=== PATIENT | male | born 1935 | race Caucasian/White ===

== ENCOUNTER 2018-01-02 09:11 | Emergency (ER) | payer MEDICARE, OTHER ==
[2018-01-02] MEDS ORDERED: Iohexol 240 (50 ml) PO STA (09:53)
--- NOTE | 2018-01-02 09:53 | C.PDOC ---
History Of Present Illness 82 Y/O MALE PRESENTS TO ED REFERRED DR CABALLERO FOR EVALUATION OF NEW ONSET RLQ PAIN FOR 2-3 WEEKS, WORSENING FOR 3-4 DAYS. PAIN IS INTERMITTENT WORSE WITH WALKING OR COUGHING. QUESTIONABLE MASS PER PATIENT. DENIES N/V/D, FEVER. PSH PPM. NPO SINCE [address] CABALLERO. NEW ONSET RLQ PAIN X 2-3 WEEKS NOW WORSENING 3-4 DAYS. INTERMIT WORSE W WALKING, COUGHING. ?MASS. NO NVD, FEVER. PSH PPM. NPO SINCE 08 EXAM NAD NONTOXIC ABD MIN RLQ TEND SOFT NO R/G. NO PALP MASS. NO PALP MASS INGUINAL AREA, NONTEND REMAINDER NEG MDM DOES NOT WANT PAIN MEDS AT THIS TIME Time Seen by Provider: 01/02/18 09:21 History Per: Patient History/Exam Limitations: no limitations Onset/Duration Of Symptoms: Days Current Symptoms Are (Timing): Still Present Location Of Pain/Discomfort: RLQ Radiation Of Pain To:: None Past Medical History Reviewed: Historical Data, Nursing Documentation, Vital Signs Vital Signs: Last Vital Signs Temp 97.7 F 01/02/18 09:36 Pulse 71 01/02/18 09:36 Resp 20 01/02/18 09:36 BP 157/79 H 01/02/18 09:36 Pulse Ox 96 01/02/18 10:30 - Medical History PMH: HTN Surgical History: Coronary Stent, Pacemaker - [facility] Procedures CATARAC PHACOEMULS/ASPIR (08/06/13) INSERT LENS AT CATAR EXT (08/06/13) Family History: States: No Known Family Hx - Social History Hx Alcohol Use: No Hx Substance Use: No - Immunization History Hx Tetanus Toxoid Vaccination: No Hx Influenza Vaccination: Yes Hx Pneumococcal Vaccination: Yes Review Of Systems Constitutional: Negative for: Fever, Chills Gastrointestinal: Positive for: Abdominal Pain. Negative for: Nausea, Vomiting , Diarrhea Skin: Negative for: Rash Physical Exam - Physical Exam Appears: Non-toxic, No Acute Distress Skin: Warm, Dry, No Rash Head: Atraumatic, Normacephalic Oral Mucosa: Moist Neck: Normal ROM, Supple Cardiovascular: Rhythm Regular Respiratory: Normal Breath Sounds, No Rales, No Rhonchi, No Wheezing Gastrointestinal/Abdominal: Soft, Tenderness (Minimal RLQ ), No Mass (Not palpable ), No Guarding, No Rebound Male Genital: No Inguinal Tenderness, Other (No palpable mass on inguinal area) Neurological/Psych: Oriented x3, Normal Speech, Normal Cognition ED Course And Treatment - Laboratory Results Result Diagrams: 01/02/18 10:24 01/02/18 10:24 O2 Sat by Pulse Oximetry: 96 (RA) Pulse Ox Interpretation: Normal Progress - Re-Evaluation Re-evaluation Note: 01/02/18 14:[address] NEG - Data Reviewed Data Reviewed: Lab, Diagnostic imaging Medical Decision Making Medical Decision Making: PROGRESS: PATIENT DOES NOT WANT PAIN MEDS AT THIS TIME Disposition Counseled Patient/Family Regarding: Studies Performed, Diagnosis, Need For Followup - Disposition Referrals: Emilio Caballero MD [Staff Provider] - Disposition: HOME/ ROUTINE Disposition Time: 14:27 Condition: GOOD Instructions: Acute Abdomen (Belly Pain), Adult (DC) Print Language: PALAUAN - Clinical Impression Clinical Impression: Abdominal pain - Scribe Statement The provider has reviewed the documentation as recorded by the Scribgeena Hope All medical record entries made by the Reneeibgeena were at my direction and personally dictated by me. I have reviewed the chart and agree that the record accurately reflects my personal performance of the history, physical exam, medical decision making, and the department course for this patient. I have also personally directed, reviewed, and agree with the discharge instructions and disposition.
[2018-01-02] MEDS ORDERED: Iohexol 240 (50 ml) ONE (10:06)
[2018-01-02 10:36] LABS: BASO # 0.1 K/uL (0.0-0.2); BASO % 0.7 % (0.0-2.0); EOS % 13.2 % (0.0-4.0); HEMOGLOBIN 14.3 g/dL (12.0-18.0); LYMPH # 2.2 K/uL (1.0-4.3); LYMPH % 29.8 % (20.0-40.0); MEAN CELL VOLUME 97.8 fL (80.0-94.0); MEAN CORPUSCULAR HEMOGLOBIN 33.4 pg (27.0-31.0); MEAN CORPUSCULAR HGB CONC 34.1 g/dL (33.0-37.0); MEAN PLATELET VOLUME 7.9 fL (7.2-11.7); MONO # 0.8 K/uL (0.0-0.8); MONO % 10.3 % (0.0-10.0); NEUT # 3.4 K/uL (1.8-7.0); RBC 4.29 Mil/uL (4.40-5.90); WHITE BLOOD COUNT 7.4 K/uL (4.8-10.8)
[2018-01-02 10:43] LABS: ALB/GLOB RATIO 1.2 (1.0-2.1); ALBUMIN 4.1 g/dL (3.5-5.0); ALT/SGPT 24 U/L (21-72); AST/SGOT 31 U/L (17-59); BLOOD UREA NITROGEN 26 mg/dL (9-20); CALCIUM 8.9 mg/dl (8.6-10.4); GFR AFRICAN-AMERICAN > 60; GFR NON-AFRICAN AMERICAN > 60; LIPASE 121 U/L (23-300); SQUAMOUS EPITHIAL < 1 /hpf (0-5); URINE BILIRUBIN NEGATIVE (NEGATIVE); URINE BLOOD 2+ (NEGATIVE); URINE CLARITY Clear (Clear); URINE COLOR Yellow (YELLOW); URINE GLUCOSE (UA) NORMAL (Normal); URINE LEUKOCYTE ESTERASE NEG Leu/uL (Negative); URINE PROTEIN NEGATIVE (NEGATIVE); URINE UROBILINOGEN NORMAL mg/dL (0.2-1.0)
[2018-01-02] MEDS ORDERED: Iohexol 350mg/ml 100 ML ONE (11:47)
[2018-01-02] MEDS ORDERED: Iodixanol 320 mg/ml 150 ml Bottle IV ONE (11:52)
--- NOTE | 2018-01-02 13:44 | CT ---
PROCEDURE: CT Abdomen and Pelvis with contrast HISTORY: abd pain RLQ COMPARISON: None. TECHNIQUE: Contrast dose: 100 mL Visipaque 320 Radiation dose: Total exam DLP = 389.96 mGy-cm. This CT exam was performed using one or more of the following dose reduction techniques: Automated exposure control, adjustment of the mA and/or kV according to patient size, and/or use of iterative reconstruction technique. FINDINGS: LOWER THORAX: Subpleural fibrosis in both lower lobes, right middle lobe and the lingular segment left upper lobe. No infiltrate. AICD noted. Mild cardiomegaly. Coronary arterial calcification. LIVER: Normal size, contour and attenuation. Multiple small nonspecific low-attenuation lesions, largest 10 mm. These are seen in both the right and left lobe. No biliary dilatation. GALLBLADDER AND BILE DUCTS: Unremarkable. PANCREAS: Unremarkable. No gross lesion or ductal dilatation. SPLEEN: Unremarkable. ADRENALS: Unremarkable. No mass. KIDNEYS AND URETERS: 10 mm mid left renal cortical cyst. No other renal mass. No calculus or hydronephrosis. VASCULATURE: Unremarkable. No aortic aneurysm. BOWEL: Unremarkable. No obstruction. No gross mural thickening. APPENDIX: Normal appendix. PERITONEUM: Unremarkable. No free fluid. No free air. LYMPH NODES: Unremarkable. No enlarged lymph nodes. BLADDER: Unremarkable. REPRODUCTIVE: Unremarkable. BONES: No acute fracture. OTHER FINDINGS: None. IMPRESSION: No evidence of appendicitis. No bowel obstruction. Minor findings as above
[2018-01-02 14:27] VITALS: RESP 18
[2018-01-02 15:44] VITALS: BP 106/67; PULSE 60; TEMP 97.5; O2SAT 98
== END 2018-01-02 15:48 | disposition home or self-care (01) ==
LOC: C.ER 09:11
DX: R10.31 Right lower quadrant pain (principal)
CPT/HCPCS: 74177; 80053; 81001; 83690; 85025; 99285; Q9966; Q9967

== ENCOUNTER 2018-02-14 06:13 | Inpatient (IN) | payer MEDICARE, OTHER ==
[2018-02-01 10:23] VITALS: BMI 23.2
[2018-02-14] MEDS ORDERED: ceFAZolin 1 gm in NS 0 GM/0 ML BAG IVPB ONE (07:15)
[2018-02-14] MEDS ORDERED: Bupivacaine HCl 0.25% PF (30 ml) Inj ONE ×2 (07:15)
[2018-02-14] MEDS ORDERED: Lidocaine/Epinephrine 1% 1:100000 10 ML IJ ONE (07:16)
[2018-02-14] MEDS ORDERED: Phenylephrine 10 mg/ml Inj ONE (07:55)
[2018-02-14] MEDS ORDERED: Rocuronium 10 mg/ml (5 ml) ONE (07:55)
[2018-02-14] MEDS ORDERED: ePHEDrine 50 mg/ml Inj ONE (07:55)
[2018-02-14] MEDS ORDERED: Etomidate 20 mg/10ml Inj IV ONE (07:55)
[2018-02-14] MEDS ORDERED: Lactated Ringer's 1,000 ML IV ONE (10:05)
--- NOTE | 2018-02-14 10:47 | CP.PCM.CON ---
<Susanne Awad - Last Filed: 02/14/18 17:15> History of Present Illness - History of Present Illness History of Present Illness: Critical Care Consult Note HPI: This is an 82 year old male with PMHx of HTN, HLD, CAD with 3 stents, AICD / Pacemaker, Hx Right sided Carotid Stenosis s/p endarterectomy, Atrial Fibrillation, and HYPERthyroidism who presented to [facility] for bilateral inguinal hernia repair, prior to receiving anesthesia, his BP was 220/90s, patient was completely asymptomatic, denied chest pain, dizziness, shortness of breath. Patient was admitted to ICU on cardene drip and for further cardiac monitoring. Patient started on norvasc and coreg, will titrate cardene drip, ECHO ordered. If BP remains still he is for OR tomorrow. Denied fever, chills, headache, SOB, chest pain, abdominal pain, n/v/d/c, or urinary symptoms. PMHx: HTN, HLD, CAD with 3 stents, AICD/ Pacemaker, Hx Right sided Carotid Stenosis s/p endarterectomy, Atrial Fibrillation, and HYPERthyroidism PSHx: Endarterectomy, PCI placements, AICD/ Pacemaker, Partial Right thyroidectomy, Glaucoma, Meds: Vitamin D, [place] 3, Plavix 75, Eliquis 5mg BID, Torsemide 10mg daily, Kdur 20mg daily, Atorvastatin 20mg, Methimazole 10mg, (used to take cozaar 100mg , coreg 12.5mg BID, not taking ASA as instructed by PMD). All: NKDA SHx: Smoked and drink alcohol social as a teen, denied current tobacco, ETOH or illicit drug use FHx: Unremarkable PMD: Dr. Cosmo Paredes (daughter) [phone] Past Patient History - Past Medical History & Family History Past Medical History?: Yes - Past Social History Smoking Status: Never Smoked - CARDIAC Hx Cardiac Disorders: Yes Hx Cardia Arrhythmia: Yes Hx Hypercholesterolemia: Yes Hx Hypertension: Yes Hx Internal Defibrillator: Yes (AICD) Hx Pacemaker: Yes Other/Comment: HX: AICD - PULMONARY Hx Respiratory Disorders: Yes Hx Pneumonia: Yes ("MANY YEARS AGO") - HEENT Hx HEENT Problems: Yes Hx Glaucoma: Yes (SURGERY DONE) - ENDOCRINE/METABOLIC Hx Endocrine Disorders: Yes Hx Hypothyroidism: Yes Other/Comment: HX: PARTIAL (RIGHT) THYROIDECTOMY - GASTROINTESTINAL Hx Gastrointestinal Disorders: Yes Hx Gastroesophageal Reflux: Yes - SURGICAL HISTORY Hx Surgeries: Yes Hx Cardiac Catheterization: Yes Hx Coronary Stent: Yes Hx Eye Surgery: Yes (FOR GLUCOMA) Hx Thyroidectomy: Yes (PARTIAL (RIGHT) THYROIDECTOMY) - ANESTHESIA Hx Anesthesia: Yes Hx Anesthesia Reactions: No Hx Malignant Hyperthermia: No Has any member of the family had a problem w/ anesthesia?: No Meds Allergies/Adverse Reactions: Allergies Allergy/AdvReac Type Severity Reaction Status Date / Time No Known Allergies Allergy Verified 01/02/18 09:44 - Medications Medications: Current Medications Enoxaparin Sodium (Lovenox) 40 mg SC DAILY [facility] Nicardipine HCl 25 mg/ Sodium (Chloride) 250 mls @ 50 mls/hr IV .Q5H INDIRA; 5 MG/ HR PRN Reason: Protocol Losartan Potassium (Cozaar) 100 mg PO DAILY [facility] Methimazole (Tapazole) 10 mg PO DAILY [facility] Pantoprazole Sodium (Protonix Inj) 40 mg IVP DAILY [facility] Rosuvastatin Calcium (Crestor) 2.5 mg PO HS INDIRA Torsemide (Demadex) 20 mg PO DAILY INDIRA Physical Exam - Constitutional Appears: No Acute Distress - Head Exam Head Exam: NORMAL INSPECTION, NORMOCEPHALIC - Eye Exam Eye Exam: EOMI, Normal appearance, PERRL Pupil Exam: NORMAL ACCOMODATION - ENT Exam ENT Exam: Mucous Membranes Moist, Normal Exam - Respiratory Exam Respiratory Exam: Clear to Auscultation Bilateral, NORMAL BREATHING PATTERN - Cardiovascular Exam Cardiovascular Exam: REGULAR RHYTHM, RRR, +S1, +S2 - GI/Abdominal Exam GI & Abdominal Exam: Normal Bowel Sounds, Soft. absent: Distended, Tenderness - Rectal Exam Rectal Exam: Deferred - Extremities Exam Extremities exam: Positive for: normal inspection, pedal pulses present. Negative for: pedal edema, tenderness - Back Exam Back exam: NORMAL INSPECTION - Neurological Exam Neurological exam: Alert, CN II-XII Intact, Oriented x3 - Psychiatric Exam Psychiatric exam: Normal Affect, Normal Mood - Skin Skin Exam: Dry, Intact, Normal Color, Warm Results - Vital Signs Recent Vital Signs: Last Vital Signs Temp 97.9 F 02/14/18 06:33 Pulse 69 02/14/18 06:33 Resp 20 02/14/18 06:33 BP 176/95 H 02/14/18 06:33 Pulse Ox 97 02/14/18 06:33 - Labs Result Diagrams: 02/14/18 11:20 02/14/18 11:20 Assessment & Plan - Assessment and Plan (Free Text) Assessment: This is an 82 year old male with PMHx of HTN, HLD, CAD with 3 stents, AICD/ Pacemaker, Hx Right sided Carotid Stenosis s/p endarterectomy, Atrial Fibrillation, and HYPERthyroidism who presented to [facility] for bilateral inguinal hernia repair, prior to receiving anesthesia, his BP was 220/90s, patient was completely asymptomatic, denied chest pain, dizziness, shortness of breath. Currently on a cardene drip, will transition to norvasc and coreg, anticipate OR tomorrow if BP stabilizes. Plan: Neuro: GCS 15 Cardio: A: Hypertensive Urgency, Hx HTN - Currently on Cardene drip, will titrate to PO meds - Norvasc 10mg PO, Coreg 25mg PO BID - ECHO A: CAD with 3 stents - Plavix 75mg PO - held for surgery - Crestor 2.5 mg A: AICD/ Pacemaker A: Carotid Stenosis s/p endarterectomy A: Atrial Fibrillation - Takes Eliquis at home 5mg PO BID - held 2/2 preop GI A: Bilateral Inguinal Hernia General Surgery - Dr. Nicholas - Plan for OR 02/15/18 if BP stabilizes Endo: A: Hyperthyroidism - Resume Methimazole 10mg PO daily Prophylaxis: - Protonix - SCDs, VTE c/i preop DW Susanne Smith DO, PGY-1 <Yaron Ybarra - Last Filed: 02/14/18 18:00> Meds - Medications Medications: Current Medications Amlodipine Besylate (Norvasc) 10 mg PO DAILY [facility] Carvedilol (Coreg) 25 mg PO Q12 INDIRA Nicardipine HCl 25 mg/ Sodium (Chloride) 250 mls @ 50 mls/hr IV .Q5H INDIRA; 5 MG/ HR PRN Reason: Protocol Last Admin: 02/14/18 10:59 Dose: 5 mg/hr, 50 mls/hr Methimazole (Tapazole) 10 mg PO DAILY [facility] Last Admin: 02/14/18 13:29 Dose: 10 mg Pantoprazole Sodium (Protonix Inj) 40 mg IVP DAILY [facility] Last Admin: 02/14/18 13:29 Dose: 40 mg Rosuvastatin Calcium (Crestor) 2.5 mg PO HS INDIRA Torsemide (Demadex) 20 mg PO DAILY INDIRA Results - Vital Signs Recent Vital Signs: Last Vital Signs Temp 98.5 F 02/14/18 16:00 Pulse 65 02/14/18 17:00 Resp 16 02/14/18 17:00 BP 126/75 02/14/18 17:00 Pulse Ox 98 02/14/18 17:00 - Labs Result Diagrams: 02/14/18 11:20 02/14/18 11:20 Labs: Laboratory Results - last 24 hr 02/14/18 02/14/18 02/14/18 11:20 11:20 11:20 WBC 6.8 RBC 4.39 L Hgb 14.5 Hct 42.5 MCV 96.9 H MCH 33.1 H MCHC 34.1 RDW 13.4 Plt Count 87 L MPV 7.5 Neut % (Auto) 47.9 L Lymph % (Auto) 32.7 [place] % (Auto) 10.7 H Eos % (Auto) 7.9 H Baso % (Auto) 0.8 Neut # (Auto) 3.2 Lymph # (Auto) 2.2 [place] # (Auto) 0.7 Eos # (Auto) 0.5 Baso # (Auto) 0.1 Sodium 141 Potassium 4.3 Chloride 101 Carbon Dioxide 30 Anion Gap 14 BUN 26 H Creatinine 1.1 Est GFR ( Amer) > 60 Est GFR (Non-Af Amer) > 60 Random Glucose 112 H Calcium 9.4 Phosphorus 3.7 Magnesium 1.9 Total Bilirubin 1.0 AST 27 ALT 24 Alkaline Phosphatase 63 Total Protein 7.5 Albumin 4.4 Globulin 3.1 Albumin/Globulin Ratio 1.4 Free T4 1.56 TSH 3rd Generation 0.24 L Attending/Attestation - Attestation I have personally seen and examined this patient.: Yes I have fully participated in the care of the patient.: Yes I have reviewed all pertinent clinical information: Yes Notes (Text): 02/14/18 18:00 patient seen and examinedin the intensive care unit. 82 year old male with PMHx of HTN, HLD, CAD with 3 stents, AICD/ Pacemaker, Hx Right sided Carotid Stenosis s/p endarterectomy, Atrial Fibrillation, and HYPERthyroidism who presented to [facility] for bilateral inguinal hernia repair, prior to receiving anesthesia, his BP was 220/90s, patient was completely asymptomatic, denied chest pain, dizziness, shortness of breath. Currently on a cardene drip, will transition to norvasc and coreg, anticipate OR tomorrow if BP stabilizes.
[2018-02-14] MEDS: niCARdipine IV 25 MG in Sodium Chloride 0.9% 240 ML IV SCH ×3 (10:59→21:10)
--- NOTE | 2018-02-14 11:22 | CP.PCM.HP ---
History of Present Illness - History of Present Illness History of Present Illness: Medicine Note for Hospitalist Service HPI: This is an 82 year old male with PMHx of HTN, HLD, CAD with 3 stents, AICD / Pacemaker, Hx Right sided Carotid Stenosis s/p endarterectomy, Atrial Fibrillation, and HYPERthyroidism who presented to [facility] for bilateral inguinal hernia repair, prior to receiving anesthesia, his BP was 220/90s, patient was completely asymptomatic, denied chest pain, dizziness, shortness of breath. Patient was admitted to ICU on cardene drip and for further cardiac monitoring. Patient started on norvasc and coreg, will titrate cardene drip, ECHO ordered. If BP remains still he is for OR tomorrow. Denied fever, chills, headache, SOB, chest pain, abdominal pain, n/v/d/c, or urinary symptoms. PMHx: HTN, HLD, CAD with 3 stents, AICD/ Pacemaker, Hx Right sided Carotid Stenosis s/p endarterectomy, Atrial Fibrillation, and HYPERthyroidism PSHx: Endarterectomy, PCI placements, AICD/ Pacemaker, Partial Right thyroidectomy, Glaucoma, Meds: Vitamin D, [place] 3, Plavix 75, Eliquis 5mg BID, Torsemide 10mg daily, Kdur 20mg daily, Atorvastatin 20mg, Methimazole 10mg, (used to take cozaar 100mg , coreg 12.5mg BID, not taking ASA as instructed by PMD). All: NKDA SHx: Smoked and drink alcohol social as a teen, denied current tobacco, ETOH or illicit drug use FHx: Unremarkable PMD: Dr. Cosmo Paredes (daughter) [phone] Present on Admission - Present on Admission Any Indicators Present on Admission: No Past Patient History - Past Medical History & Family History Past Medical History?: Yes - Past Social History Smoking Status: Never Smoked - CARDIAC Hx Cardiac Disorders: Yes Hx Cardia Arrhythmia: Yes Hx Hypercholesterolemia: Yes Hx Hypertension: Yes Hx Internal Defibrillator: Yes (AICD) Hx Pacemaker: Yes Other/Comment: HX: AICD - PULMONARY Hx Respiratory Disorders: Yes Hx Pneumonia: Yes ("MANY YEARS AGO") - HEENT Hx HEENT Problems: Yes Hx Glaucoma: Yes (SURGERY DONE) - ENDOCRINE/METABOLIC Hx Endocrine Disorders: Yes Hx Hypothyroidism: Yes Other/Comment: HX: PARTIAL (RIGHT) THYROIDECTOMY - GASTROINTESTINAL Hx Gastrointestinal Disorders: Yes Hx Gastroesophageal Reflux: Yes - SURGICAL HISTORY Hx Surgeries: Yes Hx Cardiac Catheterization: Yes Hx Coronary Stent: Yes Hx Eye Surgery: Yes (FOR GLUCOMA) Hx Thyroidectomy: Yes (PARTIAL (RIGHT) THYROIDECTOMY) - ANESTHESIA Hx Anesthesia: Yes Hx Anesthesia Reactions: No Hx Malignant Hyperthermia: No Has any member of the family had a problem w/ anesthesia?: No Meds Allergies/Adverse Reactions: Allergies Allergy/AdvReac Type Severity Reaction Status Date / Time No Known Allergies Allergy Verified 01/02/18 09:44 Physical Exam - Additional Findings Additional findings: - Constitutional Appears: No Acute Distress - Head Exam Head Exam: NORMAL INSPECTION, NORMOCEPHALIC - Eye Exam Eye Exam: EOMI, Normal appearance, PERRL Pupil Exam: NORMAL ACCOMODATION - ENT Exam ENT Exam: Mucous Membranes Moist, Normal Exam - Respiratory Exam Respiratory Exam: Clear to Auscultation Bilateral, NORMAL BREATHING PATTERN - Cardiovascular Exam Cardiovascular Exam: REGULAR RHYTHM, RRR, +S1, +S2 - GI/Abdominal Exam GI & Abdominal Exam: Normal Bowel Sounds, Soft. absent: Distended, Tenderness - Rectal Exam Rectal Exam: Deferred - Extremities Exam Extremities exam: Positive for: normal inspection, pedal pulses present. Negative for: pedal edema, tenderness - Back Exam Back exam: NORMAL INSPECTION - Neurological Exam Neurological exam: Alert, CN II-XII Intact, Oriented x3 - Psychiatric Exam Psychiatric exam: Normal Affect, Normal Mood - Skin Skin Exam: Dry, Intact, Normal Color, Warm Results - Vital Signs Recent Vital Signs: Last Vital Signs Temp 97.9 F 02/14/18 06:33 Pulse 69 02/14/18 06:33 Resp 20 02/14/18 06:33 BP 176/95 H 02/14/18 06:33 Pulse Ox 97 02/14/18 06:33 - Labs Result Diagrams: 02/14/18 11:20 02/14/18 11:20 Assessment & Plan - Assessment and Plan (Free Text) Assessment: This is an 82 year old male with PMHx of HTN, HLD, CAD with 3 stents, AICD/ Pacemaker, Hx Right sided Carotid Stenosis s/p endarterectomy, Atrial Fibrillation, and HYPERthyroidism who presented to [facility] for bilateral inguinal hernia repair, prior to receiving anesthesia, his BP was 220/90s, patient was completely asymptomatic, denied chest pain, dizziness, shortness of breath. Currently on a cardene drip, will transition to norvasc and coreg, anticipate OR tomorrow if BP stabilizes. Plan: Neuro: GCS 15 Cardio: A: Hypertensive Urgency, Hx HTN - Currently on Cardene drip, will titrate to PO meds - Norvasc 10mg PO, Coreg 25mg PO BID - ECHO A: CAD with 3 stents - Plavix 75mg PO - held for surgery - Crestor 2.5 mg A: AICD/ Pacemaker A: Carotid Stenosis s/p endarterectomy A: Atrial Fibrillation - Takes Eliquis at home 5mg PO BID - held 2/2 preop GI A: Bilateral Inguinal Hernia General Surgery - Dr. Nicholas - Plan for OR 02/15/18 if BP stabilizes Endo: A: Hyperthyroidism - Resume Methimazole 10mg PO daily Prophylaxis: - Protonix - SCDs, VTE c/i preop DW Susanne Villafana DO, PGY-1
[2018-02-14 11:23] LABS: BASO # 0.1 K/uL (0.0-0.2); BASO % 0.8 % (0.0-2.0); EOS # 0.5 K/uL (0.0-0.7); EOS % 7.9 % (0.0-4.0); HEMOGLOBIN 14.5 g/dL (12.0-18.0); LYMPH # 2.2 K/uL (1.0-4.3); LYMPH % 32.7 % (20.0-40.0); MEAN CELL VOLUME 96.9 fL (80.0-94.0); MEAN CORPUSCULAR HEMOGLOBIN 33.1 pg (27.0-31.0); MEAN CORPUSCULAR HGB CONC 34.1 g/dL (33.0-37.0); MEAN PLATELET VOLUME 7.5 fL (7.2-11.7); MONO # 0.7 K/uL (0.0-0.8); MONO % 10.7 % (0.0-10.0); NEUT # 3.2 K/uL (1.8-7.0); NEUT % 47.9 % (50.0-75.0); RBC 4.39 Mil/uL (4.40-5.90); RED CELL DISTRIBUTION WIDTH 13.4 % (11.5-14.5); WHITE BLOOD COUNT 6.8 K/uL (4.8-10.8)
[2018-02-14 11:38] LABS: ALB/GLOB RATIO 1.4 (1.0-2.1); ALBUMIN 4.4 g/dL (3.5-5.0); ALT/SGPT 24 U/L (21-72); AST/SGOT 27 U/L (17-59); BLOOD UREA NITROGEN 26 mg/dL (9-20); CALCIUM 9.4 mg/dl (8.6-10.4); GFR AFRICAN-AMERICAN > 60; GFR NON-AFRICAN AMERICAN > 60
--- NOTE | 2018-02-14 13:30 | CP.PCM.CON ---
History of Present Illness - History of Present Illness History of Present Illness: ASKED TO SEE PT BY DR WAHL FOR CARDIOLOGY COVERAGE. 82 y/o male with uncontrolled htn noted pre-hernioraphy. pt has no symptoms of cp, sob, brito, n/v/d/c, lh, dizziness. pt did not take his coreg this morning. currently bp controlled on nicardipine drip. pt has av sequential pacing. Past Patient History - Past Medical History & Family History Past Medical History?: Yes - Past Social History Smoking Status: Never Smoked - CARDIAC Hx Cardiac Disorders: Yes Hx Cardia Arrhythmia: Yes Hx Hypercholesterolemia: Yes Hx Hypertension: Yes Hx Internal Defibrillator: Yes (AICD) Hx Pacemaker: Yes Other/Comment: HX: AICD - PULMONARY Hx Respiratory Disorders: Yes Hx Pneumonia: Yes ("MANY YEARS AGO") - HEENT Hx HEENT Problems: Yes Hx Glaucoma: Yes (SURGERY DONE) - ENDOCRINE/METABOLIC Hx Endocrine Disorders: Yes Hx Hypothyroidism: Yes Other/Comment: HX: PARTIAL (RIGHT) THYROIDECTOMY - GASTROINTESTINAL Hx Gastrointestinal Disorders: Yes Hx Gastroesophageal Reflux: Yes - SURGICAL HISTORY Hx Surgeries: Yes Hx Cardiac Catheterization: Yes Hx Coronary Stent: Yes Hx Eye Surgery: Yes (FOR GLUCOMA) Hx Thyroidectomy: Yes (PARTIAL (RIGHT) THYROIDECTOMY) - ANESTHESIA Hx Anesthesia: Yes Hx Anesthesia Reactions: No Hx Malignant Hyperthermia: No Has any member of the family had a problem w/ anesthesia?: No Meds Allergies/Adverse Reactions: Allergies Allergy/AdvReac Type Severity Reaction Status Date / Time No Known Allergies Allergy Verified 01/02/18 09:44 - Medications Medications: Current Medications Carvedilol (Coreg) 12.5 mg PO BID [facility] Enoxaparin Sodium (Lovenox) 40 mg SC DAILY [facility] Nicardipine HCl 25 mg/ Sodium (Chloride) 250 mls @ 50 mls/hr IV .Q5H INDIRA; 5 MG/ HR PRN Reason: Protocol Last Admin: 02/14/18 10:59 Dose: 5 mg/hr, 50 mls/hr Losartan Potassium (Cozaar) 100 mg PO DAILY [facility] Methimazole (Tapazole) 10 mg PO DAILY [facility] Pantoprazole Sodium (Protonix Inj) 40 mg IVP DAILY [facility] Rosuvastatin Calcium (Crestor) 2.5 mg PO HS [facility] Torsemide (Demadex) 20 mg PO DAILY [facility] Physical Exam - Constitutional Appears: Non-toxic - Head Exam Head Exam: ATRAUMATIC, NORMAL INSPECTION, NORMOCEPHALIC - Eye Exam Eye Exam: EOMI, Normal appearance, PERRL. absent: Conjunctival injection, Nystagmus, Periorbital swelling, Periorbital tenderness, Scleral icterus Pupil Exam: NORMAL ACCOMODATION, PERRL - ENT Exam ENT Exam: Mucous Membranes Moist, Normal Exam. absent: Mucous Membranes Dry, Normal External Ear Exam, Normal Oropharynx, TM's Normal Bilaterally - Neck Exam Neck exam: Positive for: Normal Inspection. Negative for: Full Rom, Lymphadenopathy, Meningismus, Tenderness, Thyromegaly - Respiratory Exam Respiratory Exam: Clear to Auscultation Bilateral, NORMAL BREATHING PATTERN. absent: Accessory Muscle Use, Chest Wall Tenderness, Decreased Breath Sounds, Prolonged Expiratory Phase, Rales, Rhonchi, Wheezes, Respiratory Distress, Stridor - Cardiovascular Exam Cardiovascular Exam: Diastolic murmur, REGULAR RHYTHM, +S1, +S2, Systolic Murmur - GI/Abdominal Exam GI & Abdominal Exam: Hernia, Normal Bowel Sounds, Soft. absent: Bruit, Diminished Bowel Sounds, Distended, Firm, Guarding, Hyperactive Bowel Sounds, Hypoactive Bowel Sounds, Mass, Organomegaly, Pulsatile Mass, Rebound, Rigid, Tenderness - Rectal Exam Rectal Exam: Deferred - Extremities Exam Extremities exam: Positive for: normal inspection. Negative for: calf tenderness, full ROM, joint swelling, normal capillary refill, pedal edema, tenderness, pedal pulses present - Back Exam Back exam: NORMAL INSPECTION. absent: CVA tenderness (L), CVA tenderness (R), FULL ROM, muscle spasm, paraspinal tenderness, rash noted, tenderness, vertebral tenderness - Neurological Exam Neurological exam: Alert, CN II-XII Intact, Normal Gait, Oriented x3, Reflexes Normal - Psychiatric Exam Psychiatric exam: Normal Affect, Normal Mood - Skin Skin Exam: Dry, Intact, Normal Color, Warm Results - Vital Signs Recent Vital Signs: Last Vital Signs Temp 98.0 F 02/14/18 10:31 Pulse 65 02/14/18 12:00 Resp 18 02/14/18 12:00 BP 161/76 H 02/14/18 12:00 Pulse Ox 98 02/14/18 12:00 - Labs Result Diagrams: 02/14/18 11:20 02/14/18 11:20 Labs: Laboratory Results - last 24 hr 02/14/18 02/14/1802/14/18 11:20 11:20 11:20 WBC 6.8 RBC 4.39 L Hgb 14.5 Hct 42.5 MCV 96.9 H MCH 33.1 H MCHC 34.1 RDW 13.4 Plt Count 87 L MPV 7.5 Neut % (Auto) 47.9 L Lymph % (Auto) 32.7 [place] % (Auto) 10.7 H Eos % (Auto) 7.9 H Baso % (Auto) 0.8 Neut # (Auto) 3.2 Lymph # (Auto) 2.2 [place] # (Auto) 0.7 Eos # (Auto) 0.5 Baso # (Auto) 0.1 Sodium 141 Potassium 4.3 Chloride 101 Carbon Dioxide 30 Anion Gap 14 BUN 26 H Creatinine 1.1 Est GFR ( Amer) > 60 Est GFR (Non-Af Amer) > 60 Random Glucose 112 H Calcium 9.4 Phosphorus 3.7 Magnesium 1.9 Total Bilirubin 1.0 AST 27 ALT 24 Alkaline Phosphatase 63 Total Protein 7.5 Albumin 4.4 Globulin 3.1 Albumin/Globulin Ratio 1.4 Free T4 1.56 TSH 3rd Generation 0.24 L Assessment & Plan (1) Abdominal pain Status: Acute (2) Hypertension, uncontrolled Status: Acute (3) Pre-operative cardiovascular examination Status: Acute (4) H/O cardiac pacemaker Status: Acute (5) Afib Status: Acute - Assessment and Plan (Free Text) Plan: WILL INCREASE COREG DOSE AND ADD NORVASC. GIVE NORVASC 10 NOW AND D/C CARDENE IN 3 HOURS. PT MAY SAFELY UNDERGO SURGERY. WOULD USE IV BB'S OR CCB'S INTRA- OP FOR BP CONTROL. NO NEED TO WAIT FOR ECHO RESULTS PRIOR TO OR.
--- NOTE | 2018-02-14 21:14 | CP.PCM.CON ---
<Stacy Carty - Last Filed: 02/14/18 21:11> History of Present Illness - History of Present Illness History of Present Illness: Surgery HPI: This is an 82 year old male with PMHx of HTN, HLD, CAD with 3 stents, AICD / Pacemaker, Hx Right sided Carotid Stenosis s/p endarterectomy, Atrial Fibrillation, and HYPERthyroidism who presented to [facility] for bilateral inguinal hernia repair, prior to receiving anesthesia, his BP was 220s/90s, patient was asymptomatic, denied chest pain, dizziness, shortness of breath. Patient was admitted to ICU on cardene drip and for further cardiac monitoring. Patient started on norvasc and coreg, will titrate cardene drip, ECHO ordered. If BP remains stable he is for OR tomorrow. Denied fever, chills, headache, SOB, chest pain, abdominal pain, n/v/d/c, vision changes, hematuria, hematemesis, heamtochezia or urinary symptoms. PMHx: HTN, HLD, CAD with 3 stents, AICD/ Pacemaker, Hx Right sided Carotid Stenosis s/p endarterectomy, Atrial Fibrillation, and HYPERthyroidism PSHx: Endarterectomy, PCI placements, AICD/ Pacemaker, Partial Right thyroidectomy, Glaucoma, Meds: Vitamin D, [place] 3, Plavix 75, Eliquis 5mg BID, Torsemide 10mg daily, Kdur 20mg daily, Atorvastatin 20mg, Methimazole 10mg, (used to take cozaar 100mg , coreg 12.5mg BID, not taking ASA as instructed by PMD). All: NKDA SHx: Smoked and drink alcohol social as a teen, denied current tobacco, ETOH or illicit drug use FHx: Unremarkable PMD: Dr. Wilburn Review of Systems - Review of Systems Review of Systems: See HPI Past Patient History - Past Medical History & Family History Past Medical History?: Yes - Past Social History Smoking Status: Never Smoked - CARDIAC Hx Cardiac Disorders: Yes Hx Cardia Arrhythmia: Yes Hx Hypercholesterolemia: Yes Hx Hypertension: Yes Hx Internal Defibrillator: Yes (AICD) Hx Pacemaker: Yes Other/Comment: HX: AICD - PULMONARY Hx Respiratory Disorders: Yes Hx Pneumonia: Yes ("MANY YEARS AGO") - HEENT Hx HEENT Problems: Yes Hx Glaucoma: Yes (SURGERY DONE) - ENDOCRINE/METABOLIC Hx Endocrine Disorders: Yes Hx Hypothyroidism: Yes Other/Comment: HX: PARTIAL (RIGHT) THYROIDECTOMY - GASTROINTESTINAL Hx Gastrointestinal Disorders: Yes Hx Gastroesophageal Reflux: Yes - SURGICAL HISTORY Hx Surgeries: Yes Hx Cardiac Catheterization: Yes Hx Coronary Stent: Yes Hx Eye Surgery: Yes (FOR GLUCOMA) Hx Thyroidectomy: Yes (PARTIAL (RIGHT) THYROIDECTOMY) - ANESTHESIA Hx Anesthesia: Yes Hx Anesthesia Reactions: No Hx Malignant Hyperthermia: No Has any member of the family had a problem w/ anesthesia?: No Meds Allergies/Adverse Reactions: Allergies Allergy/AdvReac Type Severity Reaction Status Date / Time No Known Allergies Allergy Verified 01/02/18 09:44 - Medications Medications: Current Medications Amlodipine Besylate (Norvasc) 10 mg PO DAILY [facility] Carvedilol (Coreg) 25 mg PO Q12 [facility] Nicardipine HCl 25 mg/ Sodium (Chloride) 250 mls @ 50 mls/hr IV .Q5H [facility]; 5 MG/ HR PRN Reason: Protocol Last Admin: 02/14/18 21:10 Dose: Not Given Methimazole (Tapazole) 10 mg PO DAILY [facility] Last Admin: 02/14/18 13:29 Dose: 10 mg Pantoprazole Sodium (Protonix Inj) 40 mg IVP DAILY [facility] Last Admin: 02/14/18 13:29 Dose: 40 mg Rosuvastatin Calcium (Crestor) 2.5 mg PO HS [facility] Torsemide (Demadex) 20 mg PO DAILY [facility] Physical Exam - Constitutional Appears: No Acute Distress - Head Exam Head Exam: ATRAUMATIC, NORMAL INSPECTION, NORMOCEPHALIC - Eye Exam Eye Exam: EOMI, Normal appearance, PERRL Pupil Exam: NORMAL ACCOMODATION, PERRL - ENT Exam ENT Exam: Mucous Membranes Moist, Normal Exam - Neck Exam Neck exam: Positive for: Normal Inspection - Respiratory Exam Respiratory Exam: Clear to Auscultation Bilateral, NORMAL BREATHING PATTERN - Cardiovascular Exam Cardiovascular Exam: REGULAR RHYTHM - GI/Abdominal Exam GI & Abdominal Exam: Normal Bowel Sounds, Soft. absent: Tenderness - Exam Additional comments: b/l inguinal hernia - Extremities Exam Extremities exam: Positive for: normal inspection - Back Exam Back exam: NORMAL INSPECTION - Neurological Exam Neurological exam: Alert, CN II-XII Intact, Normal Gait, Oriented x3, Reflexes Normal - Psychiatric Exam Psychiatric exam: Normal Affect, Normal Mood - Skin Skin Exam: Dry, Intact, Normal Color, Warm Results - Vital Signs Recent Vital Signs: Last Vital Signs Temp 97.2 F L 02/14/18 20:00 Pulse 64 02/14/18 20:01 Resp 18 02/14/18 20:01 BP 125/63 02/14/18 20:01 Pulse Ox 95 02/14/18 20:01 - Labs Result Diagrams: 02/14/18 11:20 02/14/18 11:20 Labs: Laboratory Results - last 24 hr 02/14/18 02/14/18 02/14/18 11:20 11:20 11:20 WBC 6.8 RBC 4.39 L Hgb 14.5 Hct 42.5 MCV 96.9 H MCH 33.1 H MCHC 34.1 RDW 13.4 Plt Count 87 L MPV 7.5 Neut % (Auto) 47.9 L Lymph % (Auto) 32.7 [place] % (Auto) 10.7 H Eos % (Auto) 7.9 H Baso % (Auto) 0.8 Neut # (Auto) 3.2 Lymph # (Auto) 2.2 [place] # (Auto) 0.7 Eos # (Auto) 0.5 Baso # (Auto) 0.1 Sodium 141 Potassium 4.3 Chloride 101 Carbon Dioxide 30 Anion Gap 14 BUN 26 H Creatinine 1.1 Est GFR ( Amer) > 60 Est GFR (Non-Af Amer) > 60 Random Glucose 112 H Calcium 9.4 Phosphorus 3.7 Magnesium 1.9 Total Bilirubin 1.0 AST 27 ALT 24 Alkaline Phosphatase 63 Total Protein 7.5 Albumin 4.4 Globulin 3.1 Albumin/Globulin Ratio 1.4 Free T4 1.56 TSH 3rd Generation 0.24 L Assessment & Plan - Assessment and Plan (Free Text) Assessment: b/l inguinal hernia -Possible OR when BP stabilizes -Route Sales Driver Cleared for OR -Medical management -BP control DW Dr. Nicholas <Silverio Nicholas - Last Filed: 02/17/18 00:39> Results - Vital Signs Recent Vital Signs: Last Vital Signs Temp 97.7 F 02/15/18 16:00 Pulse 67 02/15/18 16:00 Resp 16 02/15/18 16:00 BP 150/78 02/15/18 16:00 Pulse Ox 97 02/15/18 16:00 - Labs Result Diagrams: 02/15/18 05:17 02/15/18 05:17 Attending/Attestation - Attestation I have personally seen and examined this patient.: Yes I have fully participated in the care of the patient.: Yes I have reviewed all pertinent clinical information: Yes Notes (Text): Pt was seen and examined at bedside Agree with above note and assessment Pt with Severe HTN with Hypertensive Emergency ICU consult for Cardene drip to control Blood pressure C.w ICU management Liquid diet Home meds Plan d.w pt in detail Risk and benefit explained in detail.
[2018-02-14] MEDS ORDERED: Rosuvastatin Calcium 2.5 mg Tab PO SCH (22:00)
[2018-02-15 05:29] LABS: INR 1.1; PROTHROMBIN TIME 12.3 SECONDS (9.7-12.2)
[2018-02-15 05:33] LABS: BASO % 0.5 % (0.0-2.0); EOS # 0.6 K/uL (0.0-0.7); EOS % 8.9 % (0.0-4.0); HEMOGLOBIN 13.8 g/dL (12.0-18.0); LYMPH # 2.1 K/uL (1.0-4.3); LYMPH % 29.6 % (20.0-40.0); MEAN CELL VOLUME 96.5 fL (80.0-94.0); MEAN CORPUSCULAR HEMOGLOBIN 32.5 pg (27.0-31.0); MEAN CORPUSCULAR HGB CONC 33.6 g/dL (33.0-37.0); MEAN PLATELET VOLUME 7.4 fL (7.2-11.7); MONO # 0.7 K/uL (0.0-0.8); NEUT # 3.6 K/uL (1.8-7.0); NRBC % 0.1 % (0.0-2.0); RBC 4.26 Mil/uL (4.40-5.90); RED CELL DISTRIBUTION WIDTH 13.7 % (11.5-14.5)
[2018-02-15 05:55] LABS: ALB/GLOB RATIO 1.5 (1.0-2.1); ALBUMIN 4.1 g/dL (3.5-5.0)
[2018-02-15] MEDS ORDERED: Enoxaparin 40 mg Syringe SC SCH (10:00)
[2018-02-15] MEDS ORDERED: Dextrose 5%/0.45% NS 1,000 ML IV SCH (12:15)
--- NOTE | 2018-02-15 12:17 | CP.PCM.PN ---
Addendum entered and electronically signed by Stacy Carty DO 02/15/18 18:32: Pt stable. Clear for DC for surgical standpoint. Follow up at Dr. Nicholas's office Original Note: <Stacy Carty - Last Filed: 02/15/18 12:12> Subjective - Date & Time of Evaluation Date of Evaluation: 02/15/18 Time of Evaluation: 12:12 - Subjective Subjective: Surgery Pt seen and examined. OR cancelled yesterday because of HTN SBP over 200. BP 120s/60s overnight. Denies [place], vision changes, CP, SOb,pain. + ambulate, + void. Pt is NPO for possible OR. Objective - Vital Signs/Intake and Output Vital Signs (last 24 hours): Temp Pulse Resp BP Pulse Ox 97.8 F 65 16 135/66 96 02/15/18 10:00 02/15/18 10:00 02/15/18 10:00 02/15/18 10:00 02/15/18 10:00 Intake and Output: 02/15/18 02/15/18 06:59 18:59 Intake Total 150 0 Output Total 750 0 Balance -600 0 - Medications Medications: Current Medications Amlodipine Besylate (Norvasc) 10 mg PO DAILY [facility] Carvedilol (Coreg) 25 mg PO Q12 [facility] Last Admin: 02/15/18 09:35 Dose: 25 mg Dextrose/Sodium Chloride (Dextrose 5%/0.45% Ns 1000 Ml) 1,000 mls @ 100 mls/hr IV .Q10H [facility] Methimazole (Tapazole) 10 mg PO DAILY [facility] Last Admin: 02/15/18 09:36 Dose: 10 mg Pantoprazole Sodium (Protonix Ec Tab) 40 mg PO DAILY [facility] Rosuvastatin Calcium (Crestor) 2.5 mg PO HS [facility] Last Admin: 02/14/18 22:54 Dose: 2.5 mg Torsemide (Demadex) 20 mg PO DAILY [facility] - Labs Labs: 02/15/18 05:17 02/15/18 05:17 PT 12.3 SECONDS (9.7-12.2) H 02/15/18 05:17 INR 1.1 02/15/18 05:17 APTT 32 SECONDS (21-34) 02/15/18 05:17 - Constitutional Appears: No Acute Distress - Head Exam Head Exam: ATRAUMATIC, NORMAL INSPECTION, NORMOCEPHALIC - Eye Exam Eye Exam: EOMI, Normal appearance, PERRL Pupil Exam: NORMAL ACCOMODATION, PERRL - ENT Exam ENT Exam: Mucous Membranes Moist, Normal Exam - Neck Exam Neck Exam: Full ROM, Normal Inspection. absent: Lymphadenopathy - Respiratory Exam Respiratory Exam: Clear to Ausculation Bilateral, NORMAL BREATHING PATTERN - Cardiovascular Exam Cardiovascular Exam: REGULAR RHYTHM, +S1, +S2. absent: Murmur - GI/Abdominal Exam GI & Abdominal Exam: Soft, Normal Bowel Sounds. absent: Distended, Tenderness - Exam Exam: NORMAL INSPECTION Additional comments: b/l inguinal hernia. TTP - Extremities Exam Extremities Exam: Full ROM, Normal Capillary Refill, Normal Inspection. absent : Joint Swelling, Pedal Edema - Back Exam Back Exam: NORMAL INSPECTION - Neurological Exam Neurological Exam: Alert, Awake, CN II-XII Intact, Normal Gait, Oriented x3 - Psychiatric Exam Psychiatric exam: Normal Affect, Normal Mood - Skin Skin Exam: Dry, Intact, Normal Color, Warm Assessment and Plan - Assessment and Plan (Free Text) Assessment: b/l Inguinal hernia with HTN VSS : BP stabilized. -POssible OR -NPO -IVF -BP control Will DW Dr. Nicholas <Silverio Nicholas - Last Filed: 02/17/18 00:43> Objective - Vital Signs/Intake and Output Vital Signs (last 24 hours): Temp Pulse Resp BP Pulse Ox 97.7 F 67 16 150/78 97 02/15/18 16:00 02/15/18 16:00 02/15/18 16:00 02/15/18 16:00 02/15/18 16:00 - Labs Labs: 02/15/18 05:17 02/15/18 05:17 PT 12.3 SECONDS (9.7-12.2) H 02/15/18 05:17 INR 1.1 02/15/18 05:17 APTT 32 SECONDS (21-34) 02/15/18 05:17 Attending/Attestation - Attestation I have personally seen and examined this patient.: Yes I have fully participated in the care of the patient.: Yes I have reviewed all pertinent clinical information, including history, physical exam and plan: Yes Notes (Text): Pt was seen and examined at bedside Agree with above note and assessment Pt is improved clinically BP is controlled Can be DC home Out pt f/u for B/L inguinal hernia repair with mesh Plan d.w pt in detail Risk and benefit explained in detail.
--- NOTE | 2018-02-15 14:46 | CP.CCUPN ---
<Susanne Awad - Last Filed: 02/15/18 14:43> CCU Subjective - Physician Review Subjective (Free Text): Patient seen and examined at bedside. No acute complaints. Patient is off cardene drip. Possible OR today. Downgraded to Tele. CCU Objective - Vital Signs / Intake & Output Vital Signs (Last 4 hours): Vital Signs Pulse Resp BP Pulse Ox 02/15/18 12:00 60 15 137/74 98 Intake and Output (Last 8hrs): Intake & Output 02/14/18 02/15/18 02/15/18 22:59 06:59 14:59 Intake Total 855 0 0 Output Total 450 500 0 Balance 405 -500 0 Weight 147 lb 11.355 oz 142 lb 3.17 oz Intake: IV 5 Intake, IV Amount 100 Left Forearm 100 Oral 750 0 0 Output: Urine 450 500 0 Urine, Voided 450 500 0 - Physical Exam Other physical findings (Free Text): - Constitutional Appears: No Acute Distress - Head Exam Head Exam: NORMAL INSPECTION, NORMOCEPHALIC - Eye Exam Eye Exam: EOMI, Normal appearance, PERRL Pupil Exam: NORMAL ACCOMODATION - ENT Exam ENT Exam: Mucous Membranes Moist, Normal Exam - Respiratory Exam Respiratory Exam: Clear to Auscultation Bilateral, NORMAL BREATHING PATTERN - Cardiovascular Exam Cardiovascular Exam: REGULAR RHYTHM, RRR, +S1, +S2, PACEMAKER NOTED - GI/Abdominal Exam GI & Abdominal Exam: Normal Bowel Sounds, Soft. absent: Distended, Tenderness - Rectal Exam Rectal Exam: Deferred - Extremities Exam Extremities exam: Positive for: normal inspection, pedal pulses present. Negative for: pedal edema, tenderness - Back Exam Back exam: NORMAL INSPECTION - Neurological Exam Neurological exam: Alert, CN II-XII Intact, Oriented x3 - Psychiatric Exam Psychiatric exam: Normal Affect, Normal Mood - Skin Skin Exam: Dry, Intact, Normal Color, Warm - Medications Active Medications: Active Medications Generic Name Dose Route Start Last Admin Trade Name Freq PRN Reason Stop Dose Admin Amlodipine Besylate 10 mg 02/15/18 10:00 02/15/18 12:50 Norvasc PO 10 mg DAILY [facility] Administration Carvedilol 25 mg 02/14/18 22:00 02/15/18 09:35 Coreg PO 25 mg Q12 [facility] Administration Dextrose/Sodium Chloride 1,000 mls @ 100 mls/hr 02/15/18 12:15 02/15/18 12:48 Dextrose 5%/0.45% Ns 1000 Ml IV 100 mls/hr .Q10H [facility] Administration Methimazole 10 mg 02/14/18 11:00 02/15/18 09:36 Tapazole PO 10 mg DAILY [facility] Administration Pantoprazole Sodium 40 mg 02/16/18 10:00 Protonix Ec Tab PO DAILY [facility] Rosuvastatin Calcium 2.5 mg 02/14/18 22:00 02/14/18 22:54 Crestor PO 2.5 mg HS [facility] Administration Torsemide 20 mg 02/15/18 10:00 02/15/18 12:52 Demadex PO 20 mg DAILY [facility] Administration - Patient Studies Lab Studies: Microbiology Studies 02/14/18 11:20 MRSA Culture (Admit) - Final Nose MRSA NOT DETECTED Lab Studies 02/15/18 02/15/18 02/15/18 Range/Units 05:17 05:17 05:17 WBC 7.0 (4.8-10.8) K/uL RBC 4.26 L (4.40-5.90) Mil/uL Hgb 13.8 (12.0-18.0) g/dL Hct 41.1 (35.0-51.0) % MCV 96.5 H (80.0-94.0) fL MCH 32.5 H (27.0-31.0) pg MCHC 33.6 (33.0-37.0) g/dL RDW 13.7 (11.5-14.5) % Plt Count 83 L (130-400) K/uL MPV 7.4 (7.2-11.7) fL Neut % (Auto) 51.0 (50.0-75.0) % Lymph % (Auto) 29.6 (20.0-40.0) % [place] % (Auto) 10.0 (0.0-10.0) % Eos % (Auto) 8.9 H (0.0-4.0) % Baso % (Auto) 0.5 (0.0-2.0) % Neut # (Auto) 3.6 (1.8-7.0) K/uL Lymph # (Auto) 2.1 (1.0-4.3) K/uL [place] # (Auto) 0.7 (0.0-0.8) K/uL Eos # (Auto) 0.6 (0.0-0.7) K/uL Baso # (Auto) 0.0 (0.0-0.2) K/uL PT 12.3 H (9.7-12.2) SECONDS INR 1.1 APTT 32 (21-34) SECONDS Sodium 139 (132-148) mmol/L Potassium 4.6 (3.6-5.2) mmol/L Chloride 101 (98-107) mmol/L Carbon Dioxide 26 (22-30) mmol/L Anion Gap 16 (10-20) BUN 26 H (9-20) mg/dL Creatinine 1.4 (0.8-1.5) mg/dL Est GFR ( Amer) 58 Est GFR (Non-Af Amer) 48 Random Glucose 108 (75-110) mg/dL Calcium 9.0 (8.6-10.4) mg/dl Phosphorus 3.6 (2.5-4.5) mg/dL Magnesium 1.9 (1.6-2.3) mg/dL Total Bilirubin 1.0 (0.2-1.3) mg/dL AST 21 (17-59) U/L ALT 29 (21-72) U/L Alkaline Phosphatase 51 (38-126) U/L Total Protein 7.0 (6.3-8.3) g/dL Albumin 4.1 (3.5-5.0) g/dL Globulin 2.8 (2.2-3.9) gm/dL Albumin/Globulin Ratio 1.5 (1.0-2.1) Laboratory Results - last 24 hr 02/15/18 02/15/18 02/15/18 05:17 05:17 05:17 WBC 7.0 RBC 4.26 L Hgb 13.8 Hct 41.1 MCV 96.5 H MCH 32.5 H MCHC 33.6 RDW 13.7 Plt Count 83 L MPV 7.4 Neut % (Auto) 51.0 Lymph % (Auto) 29.6 [place] % (Auto) 10.0 Eos % (Auto) 8.9 H Baso % (Auto) 0.5 Neut # (Auto) 3.6 Lymph # (Auto) 2.1 [place] # (Auto) 0.7 Eos # (Auto) 0.6 Baso # (Auto) 0.0 PT 12.3 H INR 1.1 APTT 32 Sodium 139 Potassium 4.6 Chloride 101 Carbon Dioxide 26 Anion Gap 16 BUN 26 H Creatinine 1.4 Est GFR ( Amer) 58 Est GFR (Non-Af Amer) 48 Random Glucose 108 Calcium 9.0 Phosphorus 3.6 Magnesium 1.9 Total Bilirubin 1.0 AST 21 ALT 29 Alkaline Phosphatase 51 Total Protein 7.0 Albumin 4.1 Globulin 2.8 Albumin/Globulin Ratio 1.5 Critical Care Progress Note - Nutrition Nutrition: Nutrition Category Date Time Status NPO Diet [DIET] Diets 02/15/18 Breakfast Active Assessment/Plan - Assessment and Plan (Free Text) Assessment: This is an 82 year old male with PMHx of HTN, HLD, CAD with 3 stents, AICD/ Pacemaker, Hx Right sided Carotid Stenosis s/p endarterectomy, Atrial Fibrillation, and HYPERthyroidism who presented to [facility] for bilateral inguinal hernia repair, prior to receiving anesthesia, his BP was 220/90s, patient was completely asymptomatic, denied chest pain, dizziness, shortness of breath. Currently OFF cardene drip, on norvasc and coreg, anticipate OR today. Downgraded to telemetry. Plan: Neuro: GCS 15 Cardio: A: Hypertensive Urgency, Hx HTN - Currently on Cardene drip, will titrate to PO meds - Norvasc 10mg PO, Coreg 25mg PO BID - ECHO: A: CAD with 3 stents - Plavix 75mg PO - held for surgery - Crestor 2.5 mg A: AICD/ Pacemaker A: Carotid Stenosis s/p endarterectomy A: Atrial Fibrillation - Takes Eliquis at home 5mg PO BID - held 2/2 preop GI A: Bilateral Inguinal Hernia General Surgery - Dr. Nicholas - Plan for OR 02/15/18- pending surgical team Endo: A: Hyperthyroidism - Resume Methimazole 10mg PO daily Prophylaxis: - Protonix - SCDs, VTE c/i preop Disposition: DOWNGRADED TO TELEMETRY DW Dr. Yuliet Cordero, Susanne Awad DO, PGY-1 <Yuliet Cordero M - Last Filed: 02/16/18 15:08> CCU Objective - Patient Studies Lab Studies: Microbiology Studies 02/14/18 11:20 MRSA Culture (Admit) - Final Nose MRSA NOT DETECTED Critical Care Progress Note - Nutrition Nutrition: Nutrition Category Date Time Status Heart Healthy Diet [DIET] Diets 02/15/18 Dinner Active Assessment/Plan - Assessment and Plan (Free Text) Plan: Patient seen and examined at bedside. Patient remains hemodynamically stable. BP controlled. continue to monitor - Date & Time Date: 02/15/18 Time: 14:00
[2018-02-15 16:15] VITALS: BP 150/78; PULSE 67; RESP 16; TEMP 97.7; O2SAT 97
--- NOTE | 2018-02-15 16:52 | CP.PCM.PN ---
Subjective - Date & Time of Evaluation Date of Evaluation: 02/15/18 Time of Evaluation: 16:51 - Subjective Subjective: PT WO COMPLAINTS. BP NOW CONTROLLED Objective - Vital Signs/Intake and Output Vital Signs (last 24 hours): Temp Pulse Resp BP Pulse Ox 97.7 F 67 16 150/78 97 02/15/18 16:00 02/15/18 16:00 02/15/18 16:00 02/15/18 16:00 02/15/18 16:00 Intake and Output: 02/15/18 02/15/18 06:59 18:59 Intake Total 150 300 Output Total 750 450 Balance -600 -150 - Medications Medications: Current Medications Amlodipine Besylate (Norvasc) 10 mg PO DAILY [facility] Last Admin: 02/15/18 12:50 Dose: 10 mg Carvedilol (Coreg) 25 mg PO Q12 [facility] Last Admin: 02/15/18 09:35 Dose: 25 mg Dextrose/Sodium Chloride (Dextrose 5%/0.45% Ns 1000 Ml) 1,000 mls @ 100 mls/hr IV .Q10H [facility] Last Admin: 02/15/18 12:48 Dose: 100 mls/hr Methimazole (Tapazole) 10 mg PO DAILY [facility] Last Admin: 02/15/18 09:36 Dose: 10 mg Pantoprazole Sodium (Protonix Ec Tab) 40 mg PO DAILY [facility] Rosuvastatin Calcium (Crestor) 2.5 mg PO HS [facility] Last Admin: 02/14/18 22:54 Dose: 2.5 mg Torsemide (Demadex) 20 mg PO DAILY [facility] Last Admin: 02/15/18 12:52 Dose: 20 mg - Labs Labs: 02/15/18 05:17 02/15/18 05:17 PT 12.3 SECONDS (9.7-12.2) H 02/15/18 05:17 INR 1.1 02/15/18 05:17 APTT 32 SECONDS (21-34) 02/15/18 05:17 - Constitutional Appears: Well - Head Exam Head Exam: ATRAUMATIC, NORMAL INSPECTION, NORMOCEPHALIC - Eye Exam Eye Exam: EOMI, Normal appearance, PERRL Pupil Exam: NORMAL ACCOMODATION, PERRL - ENT Exam ENT Exam: Mucous Membranes Moist, Normal Exam - Neck Exam Neck Exam: Full ROM, Normal Inspection. absent: Lymphadenopathy, Meningismus, Tenderness, Thyromegaly - Respiratory Exam Respiratory Exam: Clear to Ausculation Bilateral, NORMAL BREATHING PATTERN. absent: Accessory Muscle Use, Chest Wall Tenderness, Decreased Breath Sounds, Prolonged Expiratory Phase, Rales, Rhonchi, Wheezes, Respiratory Distress, Stridor - Cardiovascular Exam Cardiovascular Exam: REGULAR RHYTHM, +S1, +S2, Murmur. absent: Bradycardia, Tachycardia, Clicks, Diastolic murmur, Gallop, Irregular Rhythm, JVD, RRR, Rubs , +S4 - GI/Abdominal Exam GI & Abdominal Exam: Soft, Normal Bowel Sounds. absent: Bruit, Distended, Firm , Guarding, Rigid, Tenderness, Diminished Bowel Sounds, Hernia, Hyperactive Bowel Sounds, Hypoactive Bowel Sounds, Organomegaly, Pulsatile Mass, Rebound, Mass - Rectal Exam Rectal Exam: Deferred - Extremities Exam Extremities Exam: Full ROM, Normal Capillary Refill, Normal Inspection. absent : Calf Tenderness, Joint Swelling, Pedal Edema, Tenderness - Back Exam Back Exam: NORMAL INSPECTION - Neurological Exam Neurological Exam: Alert, Awake, CN II-XII Intact, Normal Gait, Oriented x3 - Psychiatric Exam Psychiatric exam: Normal Affect, Normal Mood - Skin Skin Exam: Dry, Intact, Normal Color, Warm Assessment and Plan (1) Abdominal pain Status: Acute (2) Hypertension, uncontrolled Status: Acute (3) Pre-operative cardiovascular examination Status: Acute (4) H/O cardiac pacemaker Status: Acute (5) Afib Status: Acute - Assessment and Plan (Free Text) Plan: CONT CURRENT CARE DOING WELL STABLE FOR OR
--- NOTE | 2018-02-15 17:52 | CARD ---
APPROVED REPORT EXAM: Two-dimensional and M-mode echocardiogram with Doppler and color Doppler. Other Information Quality : GoodRhythm : INDICATION Atrial Fibrillation Surgery/Intervention Pacemaker: RISK FACTORS Hypertension 2D DIMENSIONS IVSd1.1 (0.7-1.1cm)LVDd4.3 (3.9-5.9cm) LVOT Diameter1.5 (1.8-2.4cm)PWd1.3 (0.7-1.1cm) LVDs2.9 (2.5-4.0cm)FS (%) 33.0 % LVEF (%)61.9 (>50%) M-Mode DIMENSIONS Left Atrium (MM)2.91 (2.5-4.0cm)IVSd1.32 (0.7-1.1cm) Aortic Root3.60 (2.2-3.7cm)LVDd4.20 (4.0-5.6cm) Aortic Cusp Exc.1.25 (1.5-2.0cm)PWd1.39 (0.7-1.1cm) FS (%) 33 %LVDs2.81 (2.0-3.8cm) LVEF (%)62 (>50%) Aortic Valve AoV Peak Jqwqqsvw756.2cm/sAoV VTI31.3cmAO Peak GR.13mmHg LVOT Peak Qysmwokn73.7cm/sLVOT VTI16.98cmAO Mean GR.6mmHg CAITLIN (VMAX)1.92ey6RW P 1/2 Dprm050jj Mitral Valve MV E Rqlzrjmm96.5cm/sMV A Igebjgod81.6cm/sE/A ratio0.3 TDI E/Lateral E'0.0E/Medial E'0.0 Tricuspid Valve TR Peak Athodrbo975jt/sTR Peak Gr.79noTvOQCN97owBu LEFT VENTRICLE There is mild to moderate concentric left ventricular hypertrophy. The left ventricular systolic function is normal. The left ventricular ejection fraction is within the normal range. There is normal LV segmental wall motion. Transmitral Doppler flow pattern is Grade I-abnormal relaxation pattern. Normal left atrial pressure. RIGHT VENTRICLE The right ventricle is normal size. The right ventricular systolic function is normal. There is a pacemaker lead in the right ventricle. ATRIA The left atrium size is normal. The right atrium size is normal. A pacemaker is seen in the right atrium AORTIC VALVE The aortic valve is calcified and displays mild decreased opening. There is mild aortic regurgitation. There is mild calcific valvular aortic stenosis. Calculated aortic valve area is 1.4 cm2. MITRAL VALVE The mitral valve is normal in structure. Mitral annular calcification is mild. There is no mitral valve regurgitation noted. TRICUSPID VALVE The tricuspid valve is normal in structure. There is mild tricuspid regurgitation. Right ventricular systolic pressure is estimated at less than 30 mmHg. PULMONIC VALVE The pulmonary valve is normal in structure. There is mild pulmonic valvular regurgitation. GREAT VESSELS The aortic root is mildly enlarged. The aortic root displays mild sclerocalcific changes. The IVC is normal in size and collapses >50% with inspiration. PERICARDIAL EFFUSION There is no pericardial effusion. <Conclusion> There is mild to moderate concentric left ventricular hypertrophy. The left ventricular systolic function is normal. Transmitral Doppler flow pattern is Grade I-abnormal relaxation pattern. Normal left atrial pressure. The right ventricular systolic function is normal. There is a pacemaker lead in the right ventricle. There is mild calcific valvular aortic stenosis. Calculated aortic valve area is 1.4 cm2. There is mild aortic regurgitation. There is mild tricuspid and pulmonic regurgitation. The aortic root is mildly enlarged. There is no pericardial effusion.
--- NOTE | 2018-02-15 19:44 | CP.PCM.DIS ---
Provider - Provider Date of Admission: 02/14/18 10:19 Attending physician: Lexa Shaffer MD Primary care physician: Dr. Wilburn Consults: Surgery Dr. Nicholas Cardiology Dr. Harrington Time Spent in preparation of Discharge (in minutes): 40 Hospital Course - Lab Results Lab Results: Micro Results 02/14/18 11:20 Nose MRSA Culture (Admit) - Final MRSA NOT DETECTED Most Recent Lab Values WBC 7.0 K/uL (4.8-10.8) 02/15/18 05:17 RBC 4.26 Mil/uL (4.40-5.90) L 02/15/18 05:17 Hgb 13.8 g/dL (12.0-18.0) 02/15/18 05:17 Hct 41.1 % (35.0-51.0) 02/15/18 05:17 MCV 96.5 fL (80.0-94.0) H 02/15/18 05:17 MCH 32.5 pg (27.0-31.0) H 02/15/18 05:17 MCHC 33.6 g/dL (33.0-37.0) 02/15/18 05:17 RDW 13.7 % (11.5-14.5) 02/15/18 05:17 Plt Count 83 K/uL (130-400) L 02/15/18 05:17 MPV 7.4 fL (7.2-11.7) 02/15/18 05:17 Neut % (Auto) 51.0 % (50.0-75.0) 02/15/18 05:17 Lymph % (Auto) 29.6 % (20.0-40.0) 02/15/18 05:17 Dickenson % (Auto) 10.0 % (0.0-10.0) 02/15/18 05:17 Eos % (Auto) 8.9 % (0.0-4.0) H 02/15/18 05:17 Baso % (Auto) 0.5 % (0.0-2.0) 02/15/18 05:17 Neut # (Auto) 3.6 K/uL (1.8-7.0) 02/15/18 05:17 Lymph # (Auto) 2.1 K/uL (1.0-4.3) 02/15/18 05:17 Dickenson # (Auto) 0.7 K/uL (0.0-0.8) 02/15/18 05:17 Eos # (Auto) 0.6 K/uL (0.0-0.7) 02/15/18 05:17 Baso # (Auto) 0.0 K/uL (0.0-0.2) 02/15/18 05:17 PT 12.3 SECONDS (9.7-12.2) H 02/15/18 05:17 INR 1.1 02/15/18 05:17 APTT 32 SECONDS (21-34) 02/15/18 05:17 Sodium 139 mmol/L (132-148) 02/15/18 05:17 Potassium 4.6 mmol/L (3.6-5.2) 02/15/18 05:17 Chloride 101 mmol/L (98-107) 02/15/18 05:17 Carbon Dioxide 26 mmol/L (22-30) 02/15/18 05:17 Anion Gap 16 (10-20) 02/15/18 05:17 BUN 26 mg/dL (9-20) H 02/15/18 05:17 Creatinine 1.4 mg/dL (0.8-1.5) 02/15/18 05:17 Est GFR ( Amer) 58 02/15/18 05:17 Est GFR (Non-Af Amer) 48 02/15/18 05:17 Random Glucose 108 mg/dL (75-110) 02/15/18 05:17 Calcium 9.0 mg/dl (8.6-10.4) 02/15/18 05:17 Phosphorus 3.6 mg/dL (2.5-4.5) 02/15/18 05:17 Magnesium 1.9 mg/dL (1.6-2.3) 02/15/18 05:17 Total Bilirubin 1.0 mg/dL (0.2-1.3) 02/15/18 05:17 AST 21 U/L (17-59) 02/15/18 05:17 ALT 29 U/L (21-72) 02/15/18 05:17 Alkaline Phosphatase 51 U/L (38-126) 02/15/18 05:17 Total Protein 7.0 g/dL (6.3-8.3) 02/15/18 05:17 Albumin 4.1 g/dL (3.5-5.0) 02/15/18 05:17 Globulin 2.8 gm/dL (2.2-3.9) 02/15/18 05:17 Albumin/Globulin Ratio 1.5 (1.0-2.1) 02/15/18 05:17 Free T4 1.56 ng/dL (0.78-2.19) 02/14/18 11:20 TSH 3rd Generation 0.24 mIU/L (0.46-4.68) L 02/14/18 11:20 - Hospital Course Hospital Course: Hospitalist Discharge Summary Patient was seen and examined at 5:45 PM ICU Bed #16 Very pleasant 82 year old male who came to Same Day Surgery on 02/14/18 for repair of Bilateral Inguinal Hernia and was found to be in Hypertensive Urgency. He was started on Cardene Drip and transferred to the ICU for further management and treatment. After discontinuation of Cardene Drip, he was started on Norvasc 10 mg PO 1x/day, Coreg 25 mg PO Q12H, and Torsemide 20 mg PO 1x/day and his blood pressure became better controlled. Echocardiogram showed mild to moderate concentric left ventricular hypertrophy with Grade I abnormal relaxation pattern (please see full report for further findings). He was seen by Cardiology and cleared for surgery. As his blood pressure is better controlled and he is currently not experiencing any inguinal hernia pain, Surgeon has scheduled patient for surgery on Monday02/23/18. He is therefore being discharged to home. Upon FULL ROS NO dysphagia/odynopahgia NO soreness in throat NO cough NO sinus/nasal congestion NO fever/chills NO muscle aches/pains NO joint pain NO chest pain/palpations NO SOB NO abdominal pain NO n/v/d/c: last bowel movement was last night NO burning pain with urination HOOVER: mild bifrontal area that comes and goes NO lightheadedness/dizziness NO paresthesias Exam: General: AAOX3, NAD HEENT: NCA, EOMI, PERRLA, NO cervical/supraclavicular/submandibular lymphadenopathy, NO pharyngeal erythema/exudate, Nasal Turbinates are nonerythematous/nonedematous, Oral Mucosa is moist Cardio: NS1 and NS2, NO M/R/G Resp: CTA B/L, NO R/R/W GI: BSx4, Soft, NT, NO HSM, NO guarding/rebound tenderness, NO pain with palpation at the bilateral inguinal hernia sites (no warmth, no erythema, no palpable abnormality) Ext: Pulses are strong and equal, Capillary Refill is 2 seconds, NO edema Neuro: CN II through XII are grossly intact Assessments: 1). HTN Urgency 2). Hx CAD with 3 Stents/AICD, Pacemaker: Norvasc, Coreg, Crestor, Toresemide 3). Hx Atrial Fibrillation: Eliquis, Coreg, Norvasc 4). Bilateral Inguinal Hernias: surgery planned for Monday02/23/18 5). Hx Hyperthyroidism: Methimazole 6). Hx Right Carotid Stensosis with Endarterectomy: ASA stopped by PMD These instructions were explained to patient with Cambodian Translation provided by Resident Dr. Lino Awad and copy in Cambodian provided to patient by Nurse Shruthi. Patient's was also present at bedside and she expressed understandin). Surgeon Dr. Nicholas's office will contact you few days before your scheduled surgery on Monday02/23/18. 2). STOP taking Eliquis and Plavix after your dose on Monday02/18/18. 3). You were provided with prescriptions for the following medications: Amlodipine 10 mg, 1 tablet by mouth at 2 PM Coreg 25 mg, 1 tablet by mouth at 8 AM and 8 PM Methimazole 10 mg, 1 tablet by mouth at 8 AM Pantaprozole 40 mg, 1 tablet by mouth at 8 AM Torsemide 20 mg, 1 tablet by mouth at 11 AM Eliquis 5 mg, 1 tablet by mouth at 8 AM and 8 PM with last dose at 8 PM on Monday02/18/18 Plavix 75 mg, 1 tablet by mouth at 11 AM with last dose at 11 AM on Monday Atorvastatin 20 mg, 1 tablet by mouth at 8 PM Ergocalciferaol 50,000 units, 1 tablet by mouth once a week on Wednesdays at 8 AM Klor Con 10 mEq, 1 tablet by mouth at 8 AM 4). Please take care and be well. Jomar Cordero D.O. Discharge Exam - Head Exam Head Exam: ATRAUMATIC, NORMAL INSPECTION, NORMOCEPHALIC Discharge Plan - Discharge Medications Prescriptions: amLODIPine [Norvasc] 10 mg PO DAILY #30 tab Apixaban [Eliquis] 5 mg PO BID #60 tab Atorvastatin [Lipitor] 20 mg PO DAILY #30 tab Carvedilol [Coreg] 25 mg PO Q12 #60 tab Clopidogrel [Plavix] 75 mg PO DAILY #30 tab Ergocalciferol (Vitamin D2) [Vitamin D2] 50,000 unit PO QWK #4 capsule methIMAzole [Tapazole] 10 mg PO DAILY #30 tab Pantoprazole [Protonix EC Tab] 40 mg PO DAILY #30 ect Potassium Chloride [Klor-Con 10] 10 meq PO DAILY #30 tablet.er Torsemide [Demadex] 20 mg PO DAILY #30 tab - Follow Up Plan Condition: GOOD Disposition: HOME/ ROUTINE Instructions: High Blood Pressure (DC) Additional Instructions: These are your instructions for follow up: 1). Surgeon Dr. Nicholas's office will contact you few days before your scheduled surgery on Monday02/23/18. 2). STOP taking Eliquis and Plavix after your dose on Monday02/18/18. 3). You were provided with prescriptions for the following medications: Amlodipine 10 mg, 1 tablet by mouth at 2 PM Coreg 25 mg, 1 tablet by mouth at 8 AM and 8 PM Methimazole 10 mg, 1 tablet by mouth at 8 AM Pantaprozole 40 mg, 1 tablet by mouth at 8 AM Torsemide 20 mg, 1 tablet by mouth at 11 AM Eliquis 5 mg, 1 tablet by mouth at 8 AM and 8 PM with last dose at 8 PM on Monday02/18/18 Plavix 75 mg, 1 tablet by mouth at 11 AM with last dose at 11 AM on Monday Atorvastatin 20 mg, 1 tablet by mouth at 8 PM Ergocalciferaol 50,000 units, 1 tablet by mouth once a week on Wednesdays at 8 AM Klor Con 10 mEq, 1 tablet by mouth at 8 AM 4). Please take care and be well. Jomar Cordero D.O. Referrals: Silverio Nicholas MD [Staff Provider] -
[2018-02-16] MEDS ORDERED: Pantoprazole 40 mg EC Tab PO SCH (10:00)
== END 2018-02-15 18:36 | disposition home or self-care (01) | DRG 305 ==
LOC: C.SDS 06:13 → C.9I 10:19
PROVIDERS: ADMIT Internal Medicine; ATTEND Internal Medicine
DX: I16.0 Hypertensive urgency (principal); Z53.09 Procedure and treatment not carried out because of other contraindication; K40.20 Bilateral inguinal hernia, without obstruction or gangrene, not specified as recurrent; E78.00 Pure hypercholesterolemia, unspecified; I25.10 Atherosclerotic heart disease of native coronary artery without angina pectoris; I48.91 Unspecified atrial fibrillation; K21.9 Gastro-esophageal reflux disease without esophagitis; Z95.0 Presence of cardiac pacemaker; Z95.5 Presence of coronary angioplasty implant and graft

== ENCOUNTER 2018-02-23 05:49 | Day surgery (SDC) | payer MEDICARE, OTHER ==
[2018-02-01 10:23] VITALS: BMI 23.2
[2018-02-23] MEDS ORDERED: ceFAZolin IV 1 gm in Dextrose 2 GM/100 ML BAG IVPB ONE (07:09)
[2018-02-23] MEDS ORDERED: Bupivacaine HCl 0.25% PF (30 ml) Inj ONE ×2 (07:09→07:47)
[2018-02-23] MEDS ORDERED: Lidocaine/Epinephrine 1% 1:100000 10 ML IJ ONE (07:09)
[2018-02-23] MEDS ORDERED: Midazolam 2 MG/2 ML VIAL ONE (07:38)
[2018-02-23] MEDS ORDERED: Propofol 10 mg/ml Inj (20 ML) ONE (07:38)
[2018-02-23] MEDS ORDERED: Phenylephrine 10 mg/ml Inj ONE (08:28)
[2018-02-23] MEDS ORDERED: HYDROmorphone 0.5 mg/0.5 ml ISec IVP PRN (09:50)
[2018-02-23] MEDS ORDERED: Lactated Ringer's 1,000 ML IV ONE (11:05)
[2018-02-23] MEDS ORDERED: Oxycodone/Acetaminophen 5/325 mg Tab PO PRN (11:08)
--- NOTE | 2018-02-23 11:08 | PCM.SURG1 ---
Surgeon's Initial Post Op Note - Surgeon's Notes Surgeon: Dr. Nicholas Rn Transitional Care: Dr. Howe PGY2, Yesika EDVI Type of Anesthesia: General Endo Pre-Operative Diagnosis: Bilateral Inguinal Hernia Operative Findings: See operative dictation Post-Operative Diagnosis: Bilateral Direct Inguinal Hernia Operation Performed: Robotic Assisted Bilateral Inguinal Hernia Repair with Mesh , TAP block Specimen/Specimens Removed: None Estimated Blood Loss: EBL {In ML}: 10 Blood Products Given: N/A Drains Used: No Drains Post-Op Condition: Good Date of Surgery/Procedure: 02/23/18 Time of Surgery/Procedure: 11:08
[2018-02-23 16:00] VITALS: RESP 20
[2018-02-23 18:53] VITALS: BP 157/82; PULSE 96; TEMP 97.7; O2SAT 100
--- NOTE | 2018-02-23 21:06 | OP ---
PROCEDURE DATE: 02/23/2018 PREOPERATIVE DIAGNOSIS: Bilateral inguinal hernia. POSTOPERATIVE DIAGNOSES: 1. Right indirect inguinal hernia. 2. Left direct inguinal hernia. PROCEDURES: 1. Robotic right inguinal hernia repair with mesh. 2. Robotic left inguinal hernia repair with mesh. 3. Laparoscopic bilateral TAP block placement. SURGEON: Silverio Schulz M.D. FENCE ERECTOR: RAN Gaviria and Willi Howe PG Y-2 resident. TYPE OF ANESTHESIA: General endotracheal tube anesthesia. ESTIMATED BLOOD LOSS: Around 10 mL. DRAIN: None. PATHOLOGY: None. COMPLICATIONS: None. INTRAOPERATIVE FINDINGS: The patient had a right indirect inguinal hernia and a left direct inguinal hernia. DESCRIPTION OF PROCEDURE: On intraoperative steps, this 82-year-old male was diagnosed with bilateral inguinal hernia and the patient was consented for the robotic bilateral inguinal hernia repair with mesh, brought to the OR, placed supine on the operating table. After induction of the anesthesia, abdomen was prepped and draped in usual sterile fashion. The supraumbilical transverse incision was made after incising the skin and subcutaneous tissue and the fascia. The robotic camera port was placed. Pneumo was created. Another 3.8 mm port was placed. Pneumo was created. Robot was brought in. Camera arm as well as arm 1 and arm 2 was docked. Peritoneum was dissected from the left ASIS up to the right ASIS and dissection was carried down to the midline up to the space of Retzius and laterally on the right side the peritoneum was dissected from the lateral pelvic wall and the peritoneal sac was reduced back into the peritoneal cavity. The patient had a direct inguinal hernia on the left side and that was also reduced back into the peritoneal cavity. The peritoneum from the lateral pelvic wall was also dissected and inferior dissection was done on both sides up to pelvic brim and the right and left anatomical mesh was placed. After proper implantation of the mesh, the peritoneum was sutured with 2-0 and 3-0 V-Loc PDS suture and now the procedure was converted to laparoscopy after removing the instrument and undocking the robot and bilateral TAP block was given, 30:30 mL of Marcaine was injected in the transverse abdominal muscle plane block. After TAP block, all the instruments were taken out, all the ports were taken out, under vision pneumo was deflated. The umbilical port site was closed in two layers, the fascia with 0 Vicryl interrupted suture, skin with 4-0 Monocryl, and dry sterile dressing was applied. The patient tolerated the procedure well. Count of instrument and gauze was correct. There was no apparent complication. Silverio Nicholas MD
== END 2018-02-23 18:50 | disposition home or self-care (01) ==
LOC: C.SDS 05:49
PROVIDERS: ATTEND Surgery Surgical Critical Care
DX: K40.20 Bilateral inguinal hernia, without obstruction or gangrene, not specified as recurrent (principal)
CPT/HCPCS: 49650; J0690; J2250; J2370; J2405; J2704; J3010; J7120